=== PATIENT | male | born 1990 | race African-American/Black ===

== ENCOUNTER 2019-07-29 14:38 | Emergency (ER) | payer BC ==
--- OUTSIDE RECORDS SUMMARY | 2019-07-29 14:42 | XMS REPORT ---
:1990 Author Name Admin Address Unavailable Unavailable , PROBLEMS Condition Status Date Provider Notes Epidermal cyst active Rodzaire Wilson Right forear m BMI 21.0-21.9 active Mara Wilson Abscess, arm, right active Claudia G Elier Anal warts active Claudia G Elier Chlamydia infection of active Claudia G Elier anus and rectum Immunization update active Claudia G Elier Gonorrhea active Claudia G Elier Pre-procedural laboratory completed - Claudia G Elier examination Std screening completed - Claudia G Elier Syphilis active Alisa Nair Hiv disease active Alisa Nair ENCOUNTERS Date Type Provider Location Encounter Diagn osis Ambulatory [facility] Public UNK 4 - Encounter [facility] 4 Ambulatory [facility] Public UNK 3 - Encounter [facility] 3 Ambulatory Jennifer Kenny UNK 6 - Encounter Tim [facility] 6 Services Ambulatory [place] UNK 8 - Encounter [facility] 8 Ambulatory [facility] Adult UNK 6 - Encounter Elier [facility] 6 Ambulatory Claudia [facility] Adult UNK 6 - Encounter Elier [facility] G Elier 6 Annabel Summers Ambulatory Claudia [facility] Adult UNK 9 - Encounter Elier [facility] G Elier 9 [facility] Ambulatory Rodzaire Wilson [facility] Adult UNK 9 - Encounter Rodari Wilson [facility] 9 Ambulatory Rodari Wilson [facility] Adult BMI 21.0-21.9E pidermal cyst 9 - Encounter Rodari Wilson Medicine Yehoracio Bojorquezi 9 Ambulatory Andrea [facility] - [facility] Peterson [facility]agues [facility] - Encounter [facility] 1 Services Ambulatory Peterson [place] [facility] Adult UNK 9 - Encounter Elier [facility] G Elier 9 [facility] Ambulatory Claudia [facility] Adult UNK 9 - Encounter Elier [facility] G Elier 9 Annabel Kristopher Ambulatory Davina Lucero [facility] UNK 7 - Encounter [facility] 7 Services Ambulatory Davina Lucero [facility]K 7 - [facility] Adult UNK 5 - Encounter Elier [facility] G Elier 5 Annabel Kristopher Ambulatory Claudia [facility] Adult UNK 9 - Encounter Elier [facility] G Elier 9 [facility] Ambulatory Claudia [facility] Adult UNK 9 - Encounter Elier [facility] G Elier 9 Ambulatory Claudia [facility] Adult UNK 9 - Encounter Elier [facility] G Elier 9 Ambulatory Claudia [facility] Adult Abscess, arm, r ight 9 - Encounter Elier [facility] G Elier 9 Hunter Tamayo Ambulatory Peterson Sotelo [facility] UNK 7 - [facility] Ambulatory Peterson S[place] [facility] UNK 7 - [facility]counter [facility] 7 Services Ambulatory [facility]ia [facility] Adult UNK 0 - Encounter Elier [facility] G Elier 0 [facility] Ambulatory Claudia [facility] Adult UNK 1 - Encounter Elier [facility] G Elier 1 [facility] Ambulatory Claudia [facility] Adult UNK 1 - Encounter Elier [facility] G Elier 1 Ambulatory Claudia [facility] Adult UNK 1 - Encounter Elier [facility] G Elier 1 Annabelmaxwell Summers Ambulatory [place] [facility] UNK 7 - Encounter [facility] 7 Services [facility] Ambulatory Claudia [facility] Adult Anal warts 7 - Encounter Elier [facility] G Elier 7 Ambulatory [place] [facility] UNK 7 - Encounter [facility] 7 Services Ambulatory Claudia G [facility] UNK 7 - Encounter Elier Claudia [facility]lier [facility] 7 [facility] Services Ambulatory Claudia G [facility] UNK 7 - Encounter Elier Claudia [facility] G Elier [facility] 7 [facility] Services Ambulatory Claudia [facility] Adult UNK 1 - Encounter Elier [facility] G Elier 1 [facility] Ambulatory Rem[facility] Adult UNK 1 - Encounter Medicine 1 Ambulatory [facility] UNK 0 - [facility] 0 Ambulatory Jennifer [facility] Adult UNK 5 - Encounter [facility] 5 Ambulatory Claudia [facility] Adult UNK 7 - Encounter Elier [facility] G Elier 7 [facility] Ambulatory Alisa Korey [facility] Adult UNK 4 - Encounter Alisa Korey Medicine Marla D Hanis 4 Ambulatory Kira [facility] Social UNK 7 - Encounter [facility] 7 Ambulatory Claudia [facility] Adult UNK 7 - Encounter Elier [facility] G Elier 7 [facility] Ambulatory Kira [facility] Adult UNK 7 - Encounter [facility] [address] [facility] Public UNK 8 - Encounter [facility] 8 Ambulatory Angella LM Social UNK 7 - Encounter [place] [facility] 7 Ambulatory Marry Weber [facility] UNK 7 - [facility] Ambulatory Marry Weber [facility] UNK 7 - Encounter [facility] 7 Services Ambulatory Claudia [facility] Adult UNK 7 - Encounter Elier [facility] G Elier 7 Ambulatory [facility] Public UNK 7 - [facility] Services 7 [place] Gait Ambulatory Claudia G [facility] Adult Std screeningPr e-procedural 7 - Encounter Elier Claudia Medicine laboratory G Elier examinationGono rrheaImmunization 7 Marry Arriaza updateChlamydi a infection of anus Annabel and rectum Kristopher Ambulatory Marla Abraham [facility] Adult UNK 4 - Encounter Medicine 4 Ambulatory Alisa Korey [facility] Adult UNK 1 - Encounter Alisa Korey Medicine 1 Ambulatory Claudia [facility] Adult UNK 0 - Encounter Elier [facility] G Elier 0 [facility] Ambulatory Marla D Hanis [facility] Adult UNK 8 - Encounter Alisa Korey Medicine Alisa Korey 8 Ambulatory Claudia [facility] Adult UNK 1 - Encounter Elier [facility] G Elier 1 [facility] Ambulatory Alisa Korey [facility] Adult UNK 9 - Encounter Alisa Korey Medicine [facility] 9 Ambulatory Claudia [facility] Adult UNK 0 - Encounter Elier [facility] G Elier 0 [facility] Ambulatory Claudia [facility] Adult UNK 0 - Encounter Elier [facility] G Elier 0 [facility] Ambulatory Claudia G [facility] Adult Pre-procedural laboratory 0 - Encounter Elier Claudia Medicine examination G Elier [place] 0 Tim Ambulatory Charla [facility] Adult UNK 0 - Encounter Luis Alberto Medicine 0 Ambulatory [facility] Public UNK 9 - Encounter Services Health Provider Services 9 [place] Ambulatory Alisa Korey C Adult UNK 9 - Encounter Alisa Korey Medicine 9 Ambulatory Alisa Korey [facility] Adult Hiv diseaseSyph ilisStd screening 9 - Encounter Alisa Korey Medicine Marla Rosario 9 VITAL SIGNS No Information Available Allergies No Known Allergy Information REASON FOR REFERRAL No Information Available RESULTS Date Observation Value Provider Reference Interpretation Loc ation Range Treponema pallidum Reactive [facility] Non Reactive / Ab, serum " rapid plasma reagin 1:2 [facility] NonRea<1:1 High antibody, serum " HIV-1RNA, serum, by 120 /mL [facility] PCR, quantitative " alanine 10 1/L [facility] 0-44 aminotransferase (SGPT), serum " aspartate 16 1/L [facility] 0-40 aminotransferase (SGOT), serum " alkaline 52 1/L [facility] 39-117 phosphatase, serum " bilirubin, serum, 0.4 mg/dL [facility] 0.0-1.2 total " albumin/globulin 1.5 [facility] 1.2-2.2 ratio, serum " globulin, serum 2.8 [facility] 1.5-4.5 " albumin, serum 4.2 g/dL [facility] 3.5-5.5 " protein, total, 7.0 g/dL [facility] 6.0-8.5 serum " calcium, serum 9.4 mg/dL [facility] 8.7-10.2 " carbon dioxide, 24 mmol/L [facility] 20-29 venous blood " chloride, serum 104 mmol/L [facility] 96-106 " potassium, serum 4.6 mmol/L [facility] 3.5-5.2 " sodium, serum 141 mmol/L [facility] 134-144 " urea 14 [facility] 9-20 nitrogen/creatinine ratio, serum " eGFR if 125 [facility] >59 [place] mL/min/((173 /100).m2) " Estimated 108 [facility] >59 Glomerular mL/min/((173 Filtration Rate /100).m2) (calc) " creatinine, serum 0.95 mg/dL [facility] 0.76-1.27 " urea nitrogen, 13 mg/dL [facility] 6-20 blood " blood glucose, 89 mg/dL [facility] 65-99 random Aerobic culture Final report [facility] " Culture, Anaerobic Final report [facility] hepatitis A Positive [facility] Negative Abnormal /20 antibody, total " hepatitis B core Positive [facility] Negative Abnormal antibody, total " hepatitis B surface Negative [facility] Negative antigen " bilirubin, serum, 0.10 mg/dL [facility] 0.00-0.40 direct " Treponema pallidum Reactive [facility] Non Reactive Abnormal Ab, serum " rapid plasma reagin 1:32 [facility] NonRea<1:1 High antibody, serum " hepatitis C <0.1 [facility] 0.0-0.9 antibody, serum " HIV-2 antibodies, Negative [facility] Negative western blot " HIV-1/HIV-2 Ab, Positive [facility] Negative Abnormal serum " HIV-CMIA Reactive [facility] Non Reactive Abnormal (Chemiluminescent Microparticle Immuno Assay) " human leukocyte Negative [facility] antigen B57 " toxoplasma gondii <3.0 [facility] 0.0-7.1 antibody, IgG " hepatitis B surface Non Reactive [facility] antibody " HIV genotype result GENRTI [facility] " HIV-1RNA, serum, by 497128 /mL [facility] PCR, quantitative " alanine 14 1/L [facility] 0-44 aminotransferase (SGPT), serum " aspartate 22 1/L [facility] 0-40 aminotransferase (SGOT), serum " alkaline 46 1/L [facility] 39-117 phosphatase, serum " bilirubin, serum, 0.2 mg/dL [facility] 0.0-1.2 total " albumin/globulin 1.4 [facility] 1.2-2.2 ratio, serum " globulin, serum 3.3 [facility] 1.5-4.5 " albumin, serum 4.5 g/dL [facility] 3.5-5.5 " protein, total, 7.8 g/dL [facility] 6.0-8.5 serum " calcium, serum 9.8 mg/dL [facility] 8.7-10.2 " carbon dioxide, 26 mmol/L [facility] 20-29 venous blood " chloride, serum 99 mmol/L [facility] 96-106 " potassium, serum 4.1 mmol/L [facility] 3.5-5.2 " sodium, serum 141 mmol/L [facility] 134-144 " urea 11 [facility] 9-20 nitrogen/creatinine ratio, serum " eGFR if 141 [facility] >59 [place] mL/min/((173 /100).m2) " Estimated 122 [facility] >59 Glomerular mL/min/((173 Filtration Rate /100).m2) (calc) " creatinine, serum 0.81 mg/dL [facility] 0.76-1.27 " urea nitrogen, 9 mg/dL [facility] 6-20 blood " blood glucose, 85 mg/dL [facility] 65-99 random " immature 0 % [facility] Not Estab. granulocytes, percentage of total cells, blood " basophil count, 0.0 x10E3/uL [facility] 0.0-0.2 absolute " Eosinophil Absolute 0.1 X10E3/UL [facility] 0.0-0.4 Count " monocyte count, 0.7 X10E3/UL [facility] 0.1-0.9 blood, automated " lymphocyte count, 2.0 X10E3/UL [facility] 0.7-3.1 blood, automated " Absolute 4.2 X10E3/UL [facility] 1.4-7.0 Neutrophils " basophils as 0 % [facility] Not Estab. percent of blood leukocytes " eosinophils as 1 % [facility] Not Estab. percent of blood leukocytes " monocytes as 10 % [facility] Not Estab. percent of blood leukocytes " lymphocytes as 28 % [facility] Not Estab. percent of blood leukocytes " neutrophils as 61 % [facility] Not Estab. percent of blood leukocytes " platelet count 407 X10E3/UL [facility] 150-379 High " red blood cell 13.2 % [facility] 12.3-15.4 distribution width " mean corpuscular 34.2 G/DL [facility] 31.5-35.7 hemoglobin concentration, RBC " mean corpuscular 32.1 pg [facility] 26.6-33.0 hemoglobin, RBC " mean corpuscular 94 fL [facility] 79-97 volume, RBC " hematocrit, blood 43.0 % [facility] 37.5-51.0 " hemoglobin, blood 14.7 g/dL [facility] 13.0-17.7 " erythrocyte (RBC) 4.58 [facility] 4.14-5.80 count X10E6/UL " leukocyte count, 7.0 X10E3/UL [facility] 3.4-10.8 blood " CD4/CD8 ratio 0.77 [facility] 0.92-3.72 Low " T-suppressor cells 42.7 % [facility] 12.0-35.5 High (CD8) as percent of blood lymphocytes " absolute CD8 854 [facility] 109-897 " T-helper cells 32.7 % [facility] 30.8-58.5 (CD4) as percent of blood lymphocytes " T-helper cells 654 /UL [facility] 359-1519 (CD4) count Treponema pallidum Positive [facility] Negative antibodies, by particle agglutination " rapid plasma reagin 1:8 [facility] NonRea<1:1 High antibody, serum " HIV-1RNA, serum, by 2580 /mL [facility] PCR, quantitative " alanine 39 1/L [facility] 0-44 aminotransferase (SGPT), serum " aspartate 35 1/L [facility] 0-40 aminotransferase (SGOT), serum " alkaline 41 1/L [facility] 39-117 phosphatase, serum " bilirubin, serum, 0.4 mg/dL [facility] 0.0-1.2 total " albumin/globulin 1.4 [facility] 1.2-2.2 ratio, serum " globulin, serum 3.5 [facility] 1.5-4.5 " albumin, serum 4.8 g/dL [facility] 3.5-5.5 " protein, total, 8.3 g/dL [facility] 6.0-8.5 serum " calcium, serum 9.9 mg/dL [facility] 8.7-10.2 " carbon dioxide, 27 mmol/L [facility] 20-29 venous blood " chloride, serum 100 mmol/L [facility] 96-106 " potassium, serum 4.6 mmol/L [facility] 3.5-5.2 " sodium, serum 142 mmol/L [facility] 134-144 " urea 17 [facility] 9-20 nitrogen/creatinine ratio, serum " eGFR if 116 [facility] >59 [place] mL/min/((173 /100).m2) " Estimated 101 [facility] >59 Glomerular mL/min/((173 Filtration Rate /100).m2) (calc) " creatinine, serum 1.01 mg/dL [facility] 0.76-1.27 " urea nitrogen, 17 mg/dL [facility] 6-20 blood " blood glucose, 91 mg/dL [facility] 65-99 random Quantiferon Gold TB Negative [facility] Negative /07 blood test for tuberculosis screening Neisseria Equivocal [facility] Negative Abnormal /19 gonorrhoeae, throat culture " Neisseria Negative [facility] Negative gonorrhoeae DNA probe " chlamydia DNA probe Negative [facility] Negative Quantiferon Gold TB Negative [facility] Negative /20 blood test for tuberculosis screening Neisseria Negative [facility] Negative /20 gonorrhoeae DNA probe " chlamydia DNA probe Negative [facility] Negative " protein, total <4.0 mg/dL [facility] Not Estab. urine random " creatinine, random, 23.9 mg/dL [facility] Not Estab. urine " urinalysis, MICNIP [facility] microscopic examination " nitrate, urine Negative [facility] Negative " urobilinogen, 0.2 [facility] 0.2-1.0 urine, semiquantitative (dipstick) " bilirubin, urine Negative [facility] Negative " ketones, urine, by Negative [facility] Negative test strip " glucose, urine, Negative [facility] Negative semiquantitative " protein, urine, Negative [facility] Negative/Tra semiquantitative ce (dipstick) " leukocyte esterase, Negative [facility] Negative urine, by dipstick " appearance, urine Clear [facility] Clear " urine color Yellow [facility] Yellow " pH, urine, 6.5 [facility] 5.0-7.5 semiquantitative " specific gravity, <=1.005 [facility] 1.005-1.030 Abnormal body fluid HISTORY OF IMMUNIZATIONS Date Vaccine Dose Lot Number Status pneumovax 23 im/sq [id number] Merck & 0.5 mL [id number] completed [employer] engerix-b im 20 mcg/ml [id number] mL [id number] completed Zzish HISTORY OF MEDICATION USE Medication Instructions Dates Provider Comments KEFLEX 500 MG ORAL 1 by mouth 4 times a - Mara Wilson CAPSULE day BACTRIM DS 800-160 MG 1 tab by mouth twice a - Mara Ne wman ORAL TABLET day x 7 days IMIQUIMOD 5 % Apply topically to - Claudia G Elier EXTERNAL CREAM lesions QHS wash area after 8-10 hrs 3 times weekly for 16 wks GENVOYA 1 tab by mouth daily Claudia G Elier [phone] MG with food ORAL TABLET SOCIAL HISTORY Date Observation Value Provider time of call 03/10/2019 9:49 AM Ángela fitzgerald time of call 02/17/2019 9:51 AM Ángela fitzgerald social history reviewed E&M reviewed today Barbara Summers " drug use, illicit Never Annabel collado " alcohol use Currently Annable Summers " passive cigarette smoke No Katharine Summers exposure " smoking status former smoker Annabel Summers tobacco use (cigarettes, Never Rodari Wilson cigar, chew, pipe) " drug use, illicit Never Rubin Gold " alcohol use Currently Rubin Gold " smoking status never smoker Yerandi Alla " social history reviewed E&M reviewed today Kandi husaini Alla " sexual orientation Ramos Rubin Bojorquezi " is there any chance that you No Juice sal Alla could be ? " assessment of health Adequate Rubin Mon i literacy ([facility] 2014 Standards, 3C10) " passive cigarette smoke No Yeranpaulo Alla exposure social history reviewed E&M reviewed today Barbara Summers " drug use, illicit Never Annabel Cristel l " alcohol use Currently Annabel Kristopher " assessment of health Adequate Annabel A ngel literacy ([facility] 2014 Standards, 3C10) " passive cigarette smoke No Katharine h Kristopher exposure " smoking status never smoker Annabel Kristopher drug use, illicit Never Yamisela Tamayo " alcohol use Currently Yamisela Tamayo " social history reviewed E&M reviewed today Alondra akira Tamayo " sexual orientation Ramos Yamanthonyla Silv a " assessment of health Adequate Yamisela Si lva literacy ([facility] 2014 Standards, 3C10) " passive cigarette smoke No Yamisela Tamayo exposure " smoking status never smoker Yamisela Tamayo social history reviewed E&M reviewed today Barbara Summers " drug use, illicit Never Annabel Cristel l " alcohol use Currently Annabel Kristopher " assessment of health Adequate Annabel A ngel literacy ([facility] 2014 Standards, 3C10) " passive cigarette smoke No Katharine h Kristopher exposure " smoking status never smoker Annabel Kristopher sexual orientation Ramos Marla D Hanis " is there any chance that you No Elysia mauricio D Hanis could be ? 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 Summers " patient considered to be No Elizabe th Kristopher homeless " passive cigarette smoke No Katharine h Kristopher exposure " assessment of health Adequate Annabel A ngel literacy ([facility] 2014 Standards, 3C10) " social history reviewed E&M reviewed today Barbara Summers " drug use, illicit Never Annabel Cristel l " alcohol use Currently Annabel Kristopher " smoking status never smoker Annabel Summers drug use, illicit Never Marla Levinerod " alcohol use, frequency holidays/special occasion s Marla Levinerod only " alcohol use Currently Marla Levinerod " sex at Male Marla Levinerod " sexual orientation Ramos Marla Rosario " passive cigarette smoke No Marla E lrod exposure " smoking status never smoker Marla Rosario " social history reviewed E&M reviewed today Dell Rosario " is there any chance that you No Elysia Rosario could be ? FUNCTIONAL STATUS No Information Available MENTAL STATUS Date Observation Value Provider mental status examination: oriented to time, suman ce, Claudia G Elier orientation E&M and person " assessment of mood and affect no depression, anx iety, or Claudia G Elier E&M agitation " Generalized Anxiety Disorder 0 Araceli Summers Questionnaire - Question 2 " Generalized Anxiety Disorder 0 Araceli Summers Questionnaire - Question 1 mental status examination: intact for recent and Rodari Wilson recall E&M remote events " assessment of judgment and intact Rodar i Wilson insight E&M " mental status examination: oriented to time, suman ce, Rodari Wilson orientation E&M and person " assessment of mood and affect no depression, anx iety, or Rodari Wilson E&M agitation " Generalized Anxiety Disorder 0 Juice sal Alla Questionnaire - Question 2 " Generalized Anxiety Disorder 0 Juice sal Alla Questionnaire - Question 1 assessment of judgment and intact Xiomara a G Elier insight E&M " mental status examination: oriented to time, suman ce, Claudia G Elier orientation E&M and person " assessment of mood and affect no depression, anx iety, or Claudia G Elier E&M agitation " Generalized Anxiety Disorder 0 Araceli Summers Questionnaire - Question 2 " Generalized Anxiety Disorder 0 Araceli Summers Questionnaire - Question 1 mental status examination: oriented to time, suman ce, Claudia G Elier orientation E&M and person " assessment of mood and affect no depression, anx iety, or Claudia G Elier E&M agitation " Generalized Anxiety Disorder 0 Robert Tamayo Questionnaire - Question 2 " Generalized Anxiety Disorder 0 Robert Tamayo Questionnaire - Question 1 assessment of judgment and intact Xiomara a G Elier insight E&M " mental status examination: oriented to time, suman ce, Claudia G Elier orientation E&M and person " assessment of mood and affect no depression, anx iety, or Claudia G Elier E&M agitation " Generalized Anxiety Disorder 0 Araceli zabeth Kristopher Questionnaire - Question 2 " Generalized Anxiety Disorder 0 Araceli zabeth Kristopher Questionnaire - Question 1 Generalized Anxiety Disorder 0 Elysia mauricio Abraham Questionnaire - Question 2 " Generalized Anxiety Disorder 0 Elysia mauricio D Hanis Questionnaire - Question 1 mental status examination: oriented to time, suman ce, Claudia G Elier orientation E&M and person " assessment of judgment and intact Xiomara a G Elier insight E&M " assessment of mood and affect no depression, anx iety, or Claudia G Elier E&M agitation " Generalized Anxiety Disorder 0 Araceli zabeth Kristopher Questionnaire - Question 2 " Generalized Anxiety Disorder 0 Araceli zabeth Kristopher Questionnaire - Question 1 assessment of mood and affect no depression, anx iety, or Alisa Korey E&M agitation " Generalized Anxiety Disorder 0 Elysia mauricio D Hanis Questionnaire - Question 2 " Generalized Anxiety Disorder 0 Elysia mauricio Abraham Questionnaire - Question 1 MEDICAL EQUIPMENT No Information Available FAMILY HISTORY No Information Available INSURANCE PROVIDERS Payer name Policy type / Coverage type Covered part y ID Marcus Gaines 101-200% Other [id number] Sliding Fee - Cat 2 [employer] insurance [employer] [place] [id number] *Marcus Gaines 0-100% Other ADVANCE DIRECTIVES No Information Available TREATMENT PLAN Date Name RPR, Rfx Qn RPR/Confirm TP Comp. Metabolic Panel (14) CBC With Differential/Platel et CD4/CD8 Ratio Profile Lipid Panel RNA, Real Time PCR (Graph) Anaerobic and Aerobic Cultur e RPR RNA, Real Time PCR (Graph) Comp. Metabolic Panel (14) RNA, Real Time PCR (Graph) RPR, Rfx Qn RPR/Confirm TP Comp. Metabolic Panel (14) Urinalysis, Routine Toxoplasma gondii Ab, IgG, Q n SPOT Urine Protein: creatin e ratio RPR RNA, PCR(NonGraph)rfx/GenoPR I QuantiFERON TB Gold Plus HLA B5701 Test HIV 1/2 ANTIGEN/ANTIBODY, FO URTH GENERATION W/RFL HCV Antibody HBsAg Screen Hep B Surface Ab Hep B Core Ab, Tot Hep A Ab, Total Gc/Ct/Trich (Urine) Bilirubin; Direct Comp. Metabolic Panel (14) CBC With Differential/Platel et CD4/CD8 Ratio Profile Ct/GC RIC, Rectal Ct/GC RIC, Pharyngeal RPR, Rfx Qn RPR/Confirm TP HIV 1/2 ANTIGEN/ANTIBODY, FO URTH GENERATION W/RFL HCV Antibody HBsAg Screen Chlamydia/GC Amplification ( Urine) Est Patient Detailed - 52086 Est Patient Exp Problem - 99 213 Est Patient Nurse - Only Vis it - 30348 Addl Vx - Ix admin via ID IM or jet injects without counseling by physician Pneumovax 23 Injection Injec table 25 MCG/0.5ML First Vx - Ix admin via ID I M or jet injects without counseling by physician Engerix-B Injection Suspensi on 20 MCG/ML Vaccines Ordered - Print Con sent/Declination Forms Est Patient Exp Problem - 99 213 Est Patient Exp Problem - 99 213 Prevnar (PCV13) IM Hepatitis B - Adult Injection, penicillin g reynaldo athine, 1.2 mu Est Patient Nurse - Only Vis it - 49514 IM Injection of Antibiotic Injection, penicillin g reynaldo athine, 1.2 mu Primary Care - Service Plann ing Comprehensive Primary Care - Assesment-Com prehensive [facility] Primary Care Medical Case [place] davis Health Education/Supportive Counseling Injection, penicillin g reynaldo athine, 1.2 mu Injection, ceftriaxone sodiu m, per 250 mg Azithromycin oral Est Patient Comprehensive-99 215 Fluzone 0.5 ml (Influenza Va cc 3 years plus IM) Prescription Assistance (HIV - Routine) Health Education/Supportive Counseling Handling of specimen for tra nsfer Venipuncture IM Injection of Antibiotic Injection, penicillin g reynaldo athine, 1.2 mu New Patient Exp Problem - 99 202 Venipuncture Handling of specimen for tra nsfer HISTORY OF PROCEDURES Procedure Date Procedure Name Provider Procedure Notes Status Addl Vx - Ix admin via Claudia G Elier co mpleted ID IM or jet injects without counseling by physician Pneumovax 23 Injection Claudia G Elier co mpleted Injectable 25 MCG/0.5ML First Vx - Ix admin via Claudia G Elier c ompleted ID IM or jet injects without counseling by physician Engerix-B Injection Claudia G Elier compl eted Suspension 20 MCG/ML Vaccines Ordered - Claudia G Elier comple wendy Print Consent/Declination Forms Injection, penicillin g Remedios [place] com pleted benzathine, 1.2 mu IM Injection of Alisa Korey no complaints completed Antibiotic Injection, penicillin g Alisa Nair comp leted benzathine, 1.2 mu Primary Care - Service Kira Fajardo Time spent with completed Planning Comprehensive patient:30 Primary Care - Kira Fajardo Time spent with complete d Assesment-Comprehensive patient:30 [facility] Primary Care Medical Kira Fajardo Time spent with co mpleted Case Management patient:45 [facility] [place] completed Education/Supportive Counseling Injection, penicillin g Claudia G Elier c ompleted benzathine, 1.2 mu Injection, ceftriaxone Claudia G Elier co mpleted sodium, per 250 mg Azithromycin oral Claudia G Elier complet ed Health Leisaprosper Blairle[place] completed Education/Supportive Counseling Venipuncture Claudia G Elier completed IM Injection of Alisa Nair completed Antibiotic Injection, penicillin g Alisa Nair comp leted benzathine, 1.2 mu Venipuncture Alisa Nair completed GOALS No Information Available HEALTH CONCERNS No Information Available
--- OUTSIDE RECORDS SUMMARY | 2019-07-29 14:42 | XMS REPORT ---
:1990 Author Name Admin Address Unavailable Unavailable , PROBLEMS Condition Status Date Provider Notes Epidermal cyst active Mara Wilson Right forear m BMI 21.0-21.9 active [...] Type Provider Location Encounter Diagn osis Ambulatory Ángela [facility] Public UNK 3 - Encounter [facility] Services 3 Ambulatory [facility] UNK 6 - Encounter [facility] Health 6 Services Ambulatory Luann [place] UNK 8 - Encounter [facility] 8 Ambulatory [facility]ia [facility] Adult UNK 6 - Encounter Elier [facility]ia [facility] G Elier 6 Ambulatory Claudia G [facility] Adult UNK 6 - Encounter Elier Claudia Medicine G Elier 6 Annabel Summers Ambulatory Claudia [facility] Adult UNK 9 - Encounter Elier Claudia Medicine G Elier 9 [facility] Ambulatory Mara Wilson [facility] Adult UNK 9 - Encounter Rodari Wilson [facility] 9 Ambulatory Rodzaire Wilson [facility] Adult BMI 21.0-21.9E pidermal cyst 9 - Encounter Rodari Wilson Medicine Rubin Gold 9 Ambulatory Andrea Zhang [facility] UNK 8 - Encounter [facility] 8 Services Ambulatory Andreakrystina Becerranco [facility] 8 - [facility] Peterson Sotelo [facility] UNK 1 - Encounter [facility] Health 1 Services Ambulatory Peterson S[place] [facility]K 1 - [facility] Adult UNK 9 - Encounter Elier Claudia Medicine G Elier 9 [employer] Ambulatory Claudia G [facility] Adult UNK 9 - Encounter Elier Claudia Medicine G Elier 9 Annabel Kristopher Ambulatory Davina Lucero [facility] UNK 7 - Encounter [facility] Health 7 Services Ambulatory Davina Lucero [facility] UNK 7 - [facility] [...] Encounter Elier Claudia Medicine G Elier 9 Tinala Tamayo Ambulatory Peterson Sotelo Legacy UNK 7 - Encounter [facility] Health 7 Services Ambulatory Peterson Sotelo [facility] UNK 7 - [facility] Ambulatory Claudia G [...] Ambulatory [place] [facility] UNK 7 - Encounter [facility] 7 Services [facility] Ambulatory Claudia G [facility] Adult Anal warts 7 - Encounter Elier Clauida Medicine G Elier 7 Ambulatory [place] [facility] UNK 7 - Encounter [facility] Health 7 Services Ambulatory Claudia G [facility]K 7 - [facility] 7 [employer] Services Ambulatory Claudia G [facility] UNK 7 - Encounter Elier Claudia [facility] G Elier Health 7 [employer] Services Ambulatory Claudia G [facility] Adult UNK 1 - Encounter Elier Claudia Medicine G Elier 1 [employer] Ambulatory Remedios [place] [facility] Adult UNK 1 - Encounter Medicine 1 Ambulatory O[facility]es [facility] Public UNK 0 - [facility] 0 Ambulatory Jennifer [facility] Adult UNK 5 - Encounter [facility] [place] 5 Ambulatory Claudia G [facility] Adult UNK 7 - Encounter Elier Claudia Medicine G Elier 7 [employer] 2019/03/1 Ambulatory Alisa Korey [facility] Adult UNK 4 - Encounter Alisa Korey Medicine Marla Lima 4 Ambulatory Kira [facility] Social UNK 7 - Encounter Fajardo Services 7 Ambulatory Claudia G [facility] Adult UNK 7 - Encounter Elier Claudia Medicine G Elier 7 [employer] Ambulatory Kira [facility] Adult UNK 7 - Encounter Fajardo Medicine [employer] 7 Ambulatory [facility] Public UNK 8 - [facility]counter [facility] 8 Ambulatory Angella LM Social UNK 7 - Encounter Adithya Services 7 Ambulatory Marry Arriaza [facility] UNK 7 - [facility] 7 Services Ambulatory Marry Arriaza [facility] UNK 7 - [facility] 7 Services Ambulatory Claudia [facility] Adult UNK 7 - Encounter Elier Claudia Medicine G Elier 7 Ambulatory [facility] UNK 7 - Encounter [facility] Health Provider Services 7 [place] Ambulatory Claudia G LM Adult Std screeningPr e-procedural 7 - Encounter Elier Claudia Medicine laboratory G Elier examinationGono rrheaImmunization 7 Marry Arriaza updateChlamydi a infection of anus Annabel and rectum Kristopher Ambulatory Marla Lima [facility] Adult UNK 4 - Encounter Medicine 4 Ambulatory Alisa Korey [facility] Adult UNK 1 - Encounter Alisa Korey Medicine 1 Ambulatory Claudia G [facility] Adult UNK 0 - Encounter Elier Claudia Medicine G Elier 0 [employer] Ambulatory Marla Abraham [facility] Adult UNK 8 - Encounter Alisa [...] Encounter Elier Claudia Medicine examination G Elier [place] 0 Tim Ambulatory Charla [facility] Adult UNK 0 - Encounter Luis Alberto Medicine 0 Ambulatory Public Health [facility] Public UNK 9 - Encounter Services Health Provider Services 9 Mollprosper Gaitz Ambulatory Alisa Korey [facility] Adult UNK 9 - Encounter Alisa Korey Medicine 9 Ambulatory Alisa Korey [facility] Adult Hiv diseaseSyph ilisStd screening 9 - Encounter Alisa Korey Medicine Marla Abraham 9 VITAL SIGNS No Information Available Allergies [...] serum " eGFR if 125 [employer] >59 [place] mL/min/((173 /100).m2) " Estimated 108 [employer] >59 [...] result GENRTI [employer] " HIV-1RNA, serum, by 221860 /mL [employer] PCR, quantitative " alanine 14 [...] serum " eGFR if 141 [employer] >59 [place] mL/min/((173 /100).m2) " Estimated 122 [employer] >59 [...] (CD4) count Treponema pallidum Positive [employer] Negative Abnormal /11 antibodies, by particle agglutination " rapid plasma [...] serum " eGFR if 116 [employer] >59 [place] mL/min/((173 /100).m2) " Estimated 101 [employer] >59 [...] Dose Lot Number Status pneumovax 23 im/sq [id number] [employer] & 0.5 mL [id number] completed [email or web address] engerix-b im 20 mcg/ml [id number] 1 mL [id number] completed [employer] HISTORY OF MEDICATION USE Medication Instructions Dates Provider Comments KEFLEX 500 MG ORAL 1 by mouth 4 times a - Rodari Wilson CAPSULE day BACTRIM DS 800-160 MG 1 tab by mouth twice a - Rodari Ne wman ORAL TABLET day x 7 days IMIQUIMOD 5 % Apply topically to - Claudia Thapa EXTERNAL CREAM lesions [facility] wash area after 8-10 hrs 3 times weekly for 16 wks GENVOYA 1 tab by mouth daily Claudia G Elier [phone] MG with food ORAL TABLET SOCIAL HISTORY Date Observation Value Provider time of call 02/17/2019 9:51 AM Ángela fitzgerald social history reviewed E&M reviewed today Barbara Summers " drug use, illicit Never Annabel collado " alcohol use Currently Annabel Summers " passive cigarette smoke No Katharine Summers exposure " smoking status former smoker Annabel Summers tobacco use (cigarettes, Never Rodari Wilson cigar, chew, pipe) " drug use, illicit Never Yerandi Alla " alcohol use Currently Yerandi Alla " smoking status never smoker Yerandi Alla " social history reviewed E&M reviewed today Kandi ndi Alla " sexual orientation Ramos Yerandi Alla " is there any chance that you No Juice sal Alla could be ? " assessment of health Adequate Yerandi Mon i literacy ([facility] 2014 Standards, 3C10) " passive cigarette smoke No Yerandi Alla exposure social history reviewed E&M reviewed today Barbara Summers " drug use, illicit Never Annabel Cristel l " alcohol use Currently Annabel Summers " assessment of health Adequate Annabel A ngel literacy ([facility] 2014 Standards, 3C10) " passive cigarette smoke No Katharine h Kristopher exposure " smoking status never smoker Annabel Summers drug use, illicit Never Yamisela Tamayo " alcohol use Currently Yamisela Tamayo " social history reviewed E&M reviewed today Alondra akira Tamayo " sexual orientation Ramos Hunter Silv a " assessment of health Adequate Yamisela Si lva literacy ([facility] 2014 Standards, 3C10) " passive cigarette smoke No Yamisela Tamayo exposure " smoking status never smoker Yamanthonyla Tamayo social history reviewed E&M reviewed today Barbara Summers " drug use, illicit Never Annabel Cristel l " alcohol use Currently Annabel Summers " assessment of health Adequate Annabel A ngel literacy ([facility] 2014 Standards, 3C10) " passive cigarette smoke No Katharine h Kristopher exposure " smoking status never smoker Annabel Summers sexual orientation Ramos Marla Abraham " is there any chance that you No Elysia mauricio Lima could be ? 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 " patient considered to be No Elizabe th Kristopher homeless " passive cigarette smoke No Katharine h Kristopher exposure " assessment of health Adequate Annabel A ngel literacy ([facility] 2014 Standards, 3C10) " social history reviewed E&M reviewed today Barbara Summers " drug use, illicit Never Annabel Cristel l " alcohol use Currently Annabel Kristopher " smoking status never smoker Annabel Kristopher drug use, illicit Never Marla Lima " alcohol use, frequency holidays/special occasion s Marla Lima only " alcohol use Currently Marla Abraham " sex at Male Marla Rosario " sexual orientation Ramos Marla Rosario " passive cigarette smoke No Marla Marino lrod exposure " smoking status never smoker [...] Araceli zabeth Kristopher Questionnaire - Question 1 mental status examination: [...] agitation " Generalized Anxiety Disorder 0 Araceli jetbeth Kristopher Questionnaire - Question 2 " Generalized Anxiety Disorder 0 Araceli zabeth Kristopher Questionnaire - Question 1 mental status examination: [...] agitation " Generalized Anxiety Disorder 0 Araceli zita Kristopher Questionnaire - Question 2 " Generalized Anxiety Disorder 0 Araceli zabeth Kristopher Questionnaire - Question 1 Generalized Anxiety Disorder 0 Elysia mauricio Abraham Questionnaire - Question 2 " Generalized Anxiety Disorder 0 Elysia mauricio Lima Questionnaire - Question 1 mental status examination: oriented to time, suman ce, Claudia G Elier orientation E&M and person " assessment of judgment and intact Xiomara a G Elier insight E&M " assessment of mood and affect no depression, anx iety, or Claudia G Elier E&M agitation " Generalized Anxiety Disorder 0 Araceli jetbewily Kristopher Questionnaire - Question 2 " Generalized Anxiety Disorder 0 Araceli jetbewily Kristopher Questionnaire - Question 1 assessment of mood and affect no depression, anx iety, or Alisa Korey E&M agitation " Generalized Anxiety Disorder 0 Elysia martínez Lima Questionnaire - Question 2 " Generalized Anxiety Disorder 0 Elysia mauricio Abraham Questionnaire - Question 1 MEDICAL EQUIPMENT No Information Available FAMILY HISTORY No Information Available INSURANCE PROVIDERS Payer name Policy type / Coverage type Covered part y ID Marcus Gaines 101-200% Other [id number] Sliding Fee - Cat 2 [employer] insurance [employer] [id number] *Marcus Gaines 0-100% Other ADVANCE DIRECTIVES No [...] Amplification ( Urine) Est Patient Detailed - 62480 Est Patient Exp Problem - 99 213 Est Patient Nurse - Only Vis it - 78145 Addl Vx - Ix admin via ID [...] Patient Nurse - Only Vis it - 89296 IM Injection of Antibiotic Injection, penicillin g reynaldo athine, 1.2 mu Primary Care - Service Plann ing Comprehensive Primary Care - Assesment-Com prehensive [facility] Primary Care Medical Case Chino davis [...] Addl Vx - Ix admin via Claudia MATIvision Elier co mpleted ID IM or jet [...] no complaints completed Antibiotic Injection, penicillin g Alisamichaelle Nair comp leted benzathine, 1.2 mu Primary Care - Service Kira Fajardo Time spent with completed Planning Comprehensive patient:30 Primary Care - Kira Fajardo Time spent with complete d Assesment-Comprehensive patient:30 [facility] Primary Care Medical Kira Fajardo Time spent with co mpleted Case Management patient:45 [place] completed Education/Supportive Counseling Injection, penicillin g Claudia G Elier c ompleted benzathine, 1.2 mu Injection, ceftriaxone Claudia G Elier co mpleted sodium, per 250 mg Azithromycin oral Claudia G Elier complet ed Health [place] completed Education/Supportive Counseling Venipuncture Claudia Gwen Thapa completed IM Injection of Alisa Nair completed Antibiotic Injection, penicillin g lAisa Nair comp leted benzathine, 1.2 mu Venipuncture Alisa Nair completed GOALS No Information Available HEALTH CONCERNS No Information Available
--- OUTSIDE RECORDS SUMMARY | 2019-07-29 14:42 | XMS REPORT ---
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 Conditions or Problems Problem Name Problem Onset Status Entry Provider Comment Standard A nnotate Code Date Date Description BMI 21.0-21.9 Active Mara Body Mass Index 11/13 11/13 Wilson between 19-24, [employer] adult Epidermal cyst 706.2 Active Mara Sebaceous cyst Right 11/13 11/13 [place] forearm [employer] Abscess, arm, 682.3 Active Claudia G Celluliti s and right 09/23 09/23 Elier GARCIA abscess of upp er arm and forearm Anal warts 078.10 Active Claudia G Viral warts, 07/22 07/22 Elier GARCIA unspecified Chlamydia 099.52 Active Claudia G Venereal dise ase infection of 06/11 06/11 Elier GARCIA of the an us and anus and rectum due to rectum Chlamydia trachomatis Gonorrhea 098.0 Active Claudia G Gonococcal 06/11 06/11 Elier GARCIA infection (acu te) of lower genitourinary tract Immunization V15.9 Active Claudia G Unspecifie d update 06/11 06/11 Elier GARCIA personal histo ry presenting hazards to healt h Hiv disease 042 Active Alisa Human 05/26 05/26 Korey immunodeficiency CHISELER HEAD virus [HIV] disease Syphilis 097.9 Active Alisa Syphilis, 05/26 05/26 Korey unspecified CHISELER HEAD Pre-procedural ICD-V72.63 Inactive Claudia G 06/11 laboratory Elier GARCIA examination Std screening ICD-V74.5 Inactive Claudia G Elier GARCIA Pre-procedural V72.63 Resolved Claudia G P re-procedural laboratory Elier GARCIA laboratory examination examination Std screening V74.5 Resolved Claudia G Sc ollie Thapa MD examination fo r venereal disease Medication List Medication Instructions Start Stop Generic NDC Status Provider Patient Date Date Name Instruct nelly KUMARI 1 tab [id number]-TENOFAF 700641 95309 Active Claudia Active [phone] by G MG ORAL TABLET mouth Elier daily MD with food BACTRIM 1 tab BACTRIM 680810 TRIMETHO PRIM-SULFAMETHOXAZOLE Inactive DS by DS 800-160 mouth 800-160 MG ORAL twice MG ORAL TABLET a day TABLET x 7 days KEFLEX 1 by KEFLEX [id number] CEPHALEXIN Inactiv e 500 MG mouth 500 MG ORAL 4 ORAL CAPSULE times CAPSULE a day IMIQUIMO Apply IMIQUIMO 075147 IMIQUIMOD Inacti ve D 5 % topica D 5 % EXTERNAL lly to EXTERNAL CREAM lesion CREAM s QHS wash area after 8-10 hrs 3 times weekly for 16 wks BACTRIM 1 tab TRIMETHOPRIM-SULFAMETHOXAZOL E [id number] No Rodari Active DS by Longer Wilson 800-160 mouth Active [employer]ACTICE [employer]ST MG ORAL twice TABLET a day x 7 days KEFLEX 1 by CEPHALEXIN [id number] No Rodari Active 500 MG mouth Longer Wilson ORAL 4 Active PRACTICE BUSINESS ASST CAPSULE times a day IMIQUIMO Apply IMIQUIMOD [id number] No Claudia Active D 5 % topica Longer G EXTERNAL lly to Active Elier CREAM lesion MD s QHS wash area after 8-10 hrs 3 times weekly for 16 wks Immunizations Vaccine Administration Date Value Standard Lee cription hepatitis B vaccine #1 given given hep atitis B vaccine, unspecified form ulation PEDIATRIC PNEUMOCOCCAL VACCINE given p neumococcal conjugate ([id number]) #1 vaccine, 13 flaco nt influenza immunization (Flu given infl uenza virus vaccine, Vax) has been administered unspe cified formulation Vital Signs Date Name Value Unit Range Description blood pressure, diastolic 80 mm[Hg] BP lucia blood pressure, systolic 138 mm[Hg] BP sys height E&M 72 [in_us] Bdy height pulse rate E&M 78 /min Heart rate temperature E&M 98.8 [degF] Body temp erature weight E&M 149.38 [lb_av] Weight Measure d blood pressure, diastolic 81 mm[Hg] BP lucia blood pressure, systolic 130 mm[Hg] BP sys height E&M 72 [in_us] Bdy height pulse rate E&M 73 /min Heart rate temperature E&M 98 [degF] Body temp erature weight E&M 157 [lb_av] Weight Measure d blood pressure, diastolic 83 mm[Hg] BP lucia blood pressure, systolic 133 mm[Hg] BP sys height E&M 72 [in_us] Bdy height pulse rate E&M 77 /min Heart rate temperature E&M 98.8 [degF] Body temp erature weight E&M 155.25 [lb_av] Weight Measure d blood pressure, diastolic 91 mm[Hg] BP lucia blood pressure, systolic 141 mm[Hg] BP sys height E&M 72 [in_us] Bdy height pulse rate E&M 88 /min Heart rate respiratory rate E&M 12 /min Resp rate temperature E&M 98.8 [degF] Body temp erature weight E&M 149 [lb_av] Weight Measure d blood pressure, diastolic 91 mm[Hg] BP lucia blood pressure, systolic 148 mm[Hg] BP sys height E&M 72 [in_us] Bdy height pulse rate E&M 71 /min Heart rate temperature E&M 98.8 [degF] Body temp erature weight E&M 163 [lb_av] Weight Measure d blood pressure, diastolic 88 mm[Hg] BP lucia blood pressure, systolic 142 mm[Hg] BP sys height E&M 72 [in_us] Bdy height pulse rate E&M 80 /min Heart rate temperature E&M 98.4 [degF] Body temp erature weight E&M 148 [lb_av] Weight Measure d blood pressure, diastolic 83 mm[Hg] BP lucia blood pressure, systolic 129 mm[Hg] BP sys height E&M 72 [in_us] Bdy height pulse rate E&M 95 /min Heart rate temperature E&M 98.9 [degF] Body temp erature weight E&M 153.50 [lb_av] Weight Measure d blood pressure, diastolic 46 mm[Hg] BP lucia blood pressure, systolic 119 mm[Hg] BP sys height E&M 72 [in_us] Bdy height pulse rate E&M 88 /min Heart rate temperature E&M 98.2 [degF] Body temp erature weight E&M 158 [lb_av] Weight Measure d Diagnostic Results Date Name Value Unit Range Description Lab Report: Anaerobic and Aerobic Cultur e, Result, Anaerobic and Aerobic ... - Chemistry Culture, Anaerobic Final report Lab Report: CD4/CD8 Ratio Profile, Comp. Metabolic Panel (14), RNA, PCR( ... - Chemistry bilirubin, serum, direct 0.10 mg/dL 0.00-0.40 hepatitis B surface antigen Negative Negative Lab Report: Comp. Metabolic Panel (14), RNA, Real Time PCR (Graph), RPR, ... - Chemistry chloride, serum 104 mmol/L 96-106 Lab Report: CD4/CD8 Ratio Profile, Comp. Metabolic Panel (14), RNA, PCR( ... - Serology HIV genotype result GENRTI Lab Report: CD4/CD8 Ratio Profile, Comp. Metabolic Panel (14), RNA, PCR( ... - Microbiology hepatitis A antibody, total Positive Negative Lab Report: Comp. Metabolic Panel (14), RNA, Real Time PCR (Graph), RPR, ... - Chemistry urea nitrogen, blood 13 mg/dL 6-20 Lab Report: CD4/CD8 Ratio Profile, Comp. Metabolic Panel (14), RNA, PCR( ... - Serology HIV-1/HIV-2 Ab, serum Positive Negative Lab Report: Urinalysis, Routine, Prot+Cr eatU (Random), Ct, Ng, Trich vag ... - Urinalysis leukocyte esterase, urine, by dipstick Negative Negative Lab Report: QFT-TB Plus (Client Incubate d) - Hematology Quantiferon Gold TB blood test for tuberculosis Negative Negative screening Lab Report: CD4/CD8 Ratio Profile, Comp. Metabolic Panel (14), RNA, PCR( ... - Serology human leukocyte antigen B57 Negative Lab Report: CD4/CD8 Ratio Profile, Comp. Metabolic Panel (14), RNA, PCR( ... - Hematology mean corpuscular hemoglobin 34.2 G/DL % 31.5-35. 7 concentration, RBC erythrocyte (RBC) count 4.58 X10E6/UL 10*6/mm3 4.14-5.80 Lab Report: CD4/CD8 Ratio Profile, Comp. Metabolic Panel (14), RNA, PCR( ... - Serology hepatitis C antibody, serum <0.1 0.0-0.9 Lab Report: Urinalysis, Routine, Prot+Cr eatU (Random), Ct, Ng, Trich vag ... - Urinalysis urine color Yellow Yellow Lab Report: CD4/CD8 Ratio Profile, Comp. Metabolic Panel (14), RNA, PCR( ... - Chemistry absolute CD8 854 109-897 Lab Report: Urinalysis, Routine, Prot+Cr eatU (Random), Ct, Ng, Trich vag ... - Urinalysis bilirubin, urine Negative Negative Lab Report: CD4/CD8 Ratio Profile, Comp. Metabolic Panel (14), RNA, PCR( ... - Chemistry Absolute Neutrophils 4.2 X10E3/UL 10*3/uL 1.4-7.0 Lab Report: Comp. Metabolic Panel (14), RNA, Real Time PCR (Graph), RPR, ... - Chemistry urea nitrogen/creatinine ratio, serum 14 9-20 Lab Report: CD4/CD8 Ratio Profile, Comp. Metabolic Panel (14), RNA, PCR( ... - Hematology mean corpuscular volume, RBC 94 fL 79-97 monocytes as percent of blood leukocytes 10 % Not Estab. Lab Report: Comp. Metabolic Panel (14), RNA, Real Time PCR (Graph), RPR, ... - Chemistry albumin/globulin ratio, serum 1.5 1.2-2. 2 creatinine, serum 0.95 mg/dL 0.76-1.27 Lab Report: Urinalysis, Routine, Prot+Cr eatU (Random), Ct, Ng, Trich vag ... - Chemistry creatinine, random, urine 23.9 mg/dL Not Estab. Lab Report: Comp. Metabolic Panel (14), RNA, Real Time PCR (Graph), RPR, ... - Chemistry bilirubin, serum, total 0.4 mg/dL 0.0-1.2 Lab Report: CD4/CD8 Ratio Profile, Comp. Metabolic Panel (14), RNA, PCR( ... - Hematology Eosinophil Absolute Count 0.1 X10E3/UL 10*3/uL 0.0-0.4 Lab Report: Urinalysis, Routine, Prot+Cr eatU (Random), Ct, Ng, Trich vag ... - Lab chlamydia DNA probe Negative Negative Lab Report: Urinalysis, Routine, Prot+Cr eatU (Random), Ct, Ng, Trich vag ... - Urinalysis appearance, urine Clear Clear Lab Report: Comp. Metabolic Panel (14), RNA, Real Time PCR (Graph), RPR, ... - Chemistry aspartate aminotransferase (SGOT), serum 16 U/L 0-40 Lab Report: CD4/CD8 Ratio Profile, Comp. Metabolic Panel (14), RNA, PCR( ... - Hematology red blood cell distribution width 13.2 % 12 .3-15.4 Lab Report: Urinalysis, Routine, Prot+Cr eatU (Random), Ct, Ng, Trich vag ... - Urinalysis urinalysis, microscopic examination MICNIP pH, urine, semiquantitative 6.5 5.0-7.5 Lab Report: CD4/CD8 Ratio Profile, Comp. Metabolic Panel (14), RNA, PCR( ... - Hematology leukocyte count, blood 7.0 X10E3/UL 10*3/mm3 3.4-10.8 Lab Report: Comp. Metabolic Panel (14), RNA, Real Time PCR (Graph), RPR, ... - Chemistry potassium, serum 4.6 mmol/L 3.5-5.2 albumin, serum 4.2 g/dL 3.5-5.5 Lab Report: CD4/CD8 Ratio Profile, Comp. Metabolic Panel (14), RNA, PCR( ... - Chemistry immature granulocytes, percentage of total cells, bloo d 0 % Not Estab. Lab Report: Chlamydia/GC Amplification, Ct/GC RIC, Rectal, Ct/GC RIC, Ph ... - Microbiology Neisseria gonorrhoeae, throat culture Equivocal Negative Lab Report: CD4/CD8 Ratio Profile, Comp. Metabolic Panel (14), RNA, PCR( ... - Hematology lymphocyte count, blood, automated 2.0 X10E3/UL 10*3/mm3 0.7-3.1 Lab Report: Urinalysis, Routine, Prot+Cr eatU (Random), Ct, Ng, Trich vag ... - Microbiology Neisseria gonorrhoeae DNA probe Negative Nega tive Lab Report: CD4/CD8 Ratio Profile, Comp. Metabolic Panel (14), RNA, PCR( ... - Hematology hematocrit, blood 43.0 % 37.5-51.0 Lab Report: Comp. Metabolic Panel (14), RNA, Real Time PCR (Graph), RPR, ... - Chemistry sodium, serum 141 mmol/L 134-144 Lab Report: CD4/CD8 Ratio Profile, Comp. Metabolic Panel (14), RNA, PCR( ... - Serology toxoplasma gondii antibody, IgG <3.0 0.0- 7.1 Lab Report: CD4/CD8 Ratio Profile, Comp. Metabolic Panel (14), RNA, PCR( ... - Hematology neutrophils as percent of blood leukocytes 61 % Not Estab. basophils as percent of blood leukocytes 0 % Not Estab. Lab Report: Comp. Metabolic Panel (14), RNA, Real Time PCR (Graph), RPR, ... - Serology HIV-1RNA, serum, by PCR, quantitative 120 {Copies}/ mL Lab Report: Urinalysis, Routine, Prot+Cr eatU (Random), Ct, Ng, Trich vag ... - Chemistry specific gravity, body fluid <=1.005 1.005-1 .030 Lab Report: Urinalysis, Routine, Prot+Cr eatU (Random), Ct, Ng, Trich vag ... - Urinalysis protein, urine, semiquantitative (dipstick) Negative Negative/Trace Lab Report: CD4/CD8 Ratio Profile, Comp. Metabolic Panel (14), RNA, PCR( ... - Toxicology HIV-2 antibodies, western blot Negative Negat lucio Lab Report: Comp. Metabolic Panel (14), RNA, Real Time PCR (Graph), RPR, ... - Serology rapid plasma reagin antibody, serum 1:2 NonRea<1:1 Lab Report: CD4/CD8 Ratio Profile, Comp. Metabolic Panel (14), RNA, PCR( ... - Chemistry CD4/CD8 ratio 0.77 0.92-3.72 Lab Report: Comp. Metabolic Panel (14), RNA, Real Time PCR (Graph), RPR, ... - Chemistry carbon dioxide, venous blood 24 mmol/L 20-29 Lab Report: Urinalysis, Routine, Prot+Cr eatU (Random), Ct, Ng, Trich vag ... - Chemistry nitrate, urine Negative Negative Lab Report: CD4/CD8 Ratio Profile, Comp. Metabolic Panel (14), RNA, PCR( ... - Serology hepatitis B core antibody, total Positive Neg ative Lab Report: Comp. Metabolic Panel (14), RNA, Real Time PCR (Graph), RPR, ... - Chemistry calcium, serum 9.4 mg/dL 8.7-10.2 alanine aminotransferase (SGPT), serum 10 U/L 0-44 Lab Report: CD4/CD8 Ratio Profile, Comp. Metabolic Panel (14), RNA, PCR( ... - Hematology mean corpuscular hemoglobin, RBC 32.1 pg 26. 6-33.0 Lab Report: Comp. Metabolic Panel (14), RNA, Real Time PCR (Graph), RPR, ... - Chemistry protein, total, serum 7.0 g/dL 6.0-8.5 Lab Report: Comp. Metabolic Panel (14), RNA, Real Time PCR (Graph), RPR, ... - Lab Treponema pallidum antibodies, by particle Positive Negative agglutination Lab Report: Comp. Metabolic Panel (14), RNA, Real Time PCR (Graph), RPR, ... - Chemistry alkaline phosphatase, serum 52 U/L 39-117 Lab Report: CD4/CD8 Ratio Profile, Comp. Metabolic Panel (14), RNA, PCR( ... - Hematology T-helper cells (CD4) as percent of blood 32.7 % 30.8-58.5 lymphocytes hemoglobin, blood 14.7 g/dL 13.0-17.7 T-suppressor cells (CD8) as percent of blood 42.7 % 12.0-35.5 lymphocytes lymphocytes as percent of blood leukocytes 28 % Not Estab. Lab Report: Urinalysis, Routine, Prot+Cr eatU (Random), Ct, Ng, Trich vag ... - Urinalysis glucose, urine, semiquantitative Negative Neg ative Lab Report: Comp. Metabolic Panel (14), RNA, Real Time PCR (Graph), RPR, ... - Genetics/fertility eGFR if 125 mL/min/1.73m2 >59 Lab Report: CD4/CD8 Ratio Profile, Comp. Metabolic Panel (14), RNA, PCR( ... - Hematology basophil count, absolute 0.0 x10E3/uL 0.0-0.2 Lab Report: Chlamydia/GC Amplification, Ct/GC RIC, Rectal, Ct/GC RIC, Ph ... - Basic GC Rectum Positive Negative Lab Report: Comp. Metabolic Panel (14), RNA, Real Time PCR (Graph), RPR, ... - Chemistry globulin, serum 2.8 1.5-4.5 Estimated Glomerular Filtration Rate (calc) 108 mL/ min/1.73m2 >59 Lab Report: Urinalysis, Routine, Prot+Cr eatU (Random), Ct, Ng, Trich vag ... - Basic Occult Blood, urine Negative Negative Lab Report: CD4/CD8 Ratio Profile, Comp. Metabolic Panel (14), RNA, PCR( ... - Serology hepatitis B surface antibody Non Reactive Lab Report: CD4/CD8 Ratio Profile, Comp. Metabolic Panel (14), RNA, PCR( ... - Hematology eosinophils as percent of blood leukocytes 1 % Not Estab. Lab Report: Comp. Metabolic Panel (14), RNA, Real Time PCR (Graph), RPR, ... - Chemistry blood glucose, random 89 mg/dL 65-99 Lab Report: Comp. Metabolic Panel (14), RNA, Real Time PCR (Graph), RPR, ... - Serology Treponema pallidum Ab, serum Reactive Non Catherine ctive Lab Report: Urinalysis, Routine, Prot+Cr eatU (Random), Ct, Ng, Trich vag ... - Chemistry protein, total urine random <4.0 mg/dL mg/dL Not Esta b. Lab Report: Urinalysis, Routine, Prot+Cr eatU (Random), Ct, Ng, Trich vag ... - Urinalysis urobilinogen, urine, semiquantitative (dipstick) 0.2 0.2-1.0 Lab Report: Anaerobic and Aerobic Cultur e, Result, Anaerobic and Aerobic ... - Lab Aerobic culture Final report Lab Report: CD4/CD8 Ratio Profile, Comp. Metabolic Panel (14), RNA, PCR( ... - Hematology T-helper cells (CD4) count 654 /UL uL 359-1519 monocyte count, blood, automated 0.7 X10E3/UL 10*3/uL 0 .1-0.9 Lab Report: Urinalysis, Routine, Prot+Cr eatU (Random), Ct, Ng, Trich vag ... - Urinalysis ketones, urine, by test strip Negative Negati ve Lab Report: CD4/CD8 Ratio Profile, Comp. Metabolic Panel (14), RNA, PCR( ... - Hematology platelet count 407 X10E3/UL 10*3/mm3 150-379 Encounters Date Encounter Provider Code Facility Est Patient Detailed Claudia Thapa MD CPT-01214 [facility] Adult Medicine 09:27:39 CDT - Est Patient Exp Mara Wilson APRN CPT-53944 [facility] Ad ult Medicine 11:10:11 CDT Problem - Est Patient Nurse - Claudia Thapa MD CPT-79116 [facility] Adult Medicine 08:21:39 CDT Only Visit - 96208 Est Patient Exp Claudia Thapa MD CPT-60212 [facility] Ad ult Medicine 12:21:09 CDT Problem - 67213 Est Patient Exp Claudia Thapa MD CPT-00720 [facility] Ad ult Medicine 10:08:25 CDT Problem - 82732 Est Patient Nurse - Alisa Nair CHISELER HEAD CPT-77888 [facility] Adult Medicine 10:21:10 CDT Only Visit - 86580 Est Patient Claudia Hidalgo Elier GARCIA CPT-84925 [facility] Adult Medicine 11:18:42 TYRE RETREADER Comprehensive-81230 New Patient Exp Alisa Ochoaagueda MONTIELP CPT-80454 [facility] Adul t Medicine 12:23:00 TYRE RETREADER Problem - 74227 Procedures Code Procedure Name Date Entry Date Standard Desc ription CPT-20611 Addl Vx - Ix admin via ID IM or jet injects without 08:21:39 CDT counseling by physician CPT-17023 Pneumovax 23 Injection Injectable 25 MCG/0.5ML 08:21:39 CDT CPT-34723 First Vx - Ix admin via ID IM or jet injects without 08:21:39 CDT counseling by physician CPT-82857 Engerix-B Injection Suspension 20 MCG/ML 08:21:39 CDT CPT-J0561 Injection, penicillin g benzathine, 1.2 mu 09:13:21 CDT CPT-53877 IM Injection of Antibiotic 10:21:10 CDT CPT-J0561 Injection, penicillin g benzathine, 1.2 mu 10:21:10 CDT CPT-HE001 Health Education/Supportive 11:43:55 CDT Counseling CPT-83948 Fluzone 0.5 ml (Influenza Vacc 3 years plus IM) 11:18:42 [employer] RETREADER CPT-J0561 Injection, penicillin g benzathine, 1.2 mu 11:53:17 [employer]ER CPT-J0696 Injection, ceftriaxone sodium, per 250 mg 11:53:17 [facility] CPT-J8499 Azithromycin oral 11:53:16 [facility] CPT-HE001 Health Education/Supportive 16:02:44 [facility] Counseling CPT-24195 Handling of specimen for transfer 09:24:09 [facility] CPT-36662 Venipuncture 09:24:08 [facility] CPT-24934 IM Injection of Antibiotic 15:36:27 [facility] CPT-J0561 Injection, penicillin g benzathine, 1.2 mu 15:36:26 [facility] CPT-46573 Venipuncture 12:23:00 [facility] CPT-63183 Handling of specimen for transfer 12:22:59 TYRE RETREADER
--- NOTE | 2019-07-29 15:22 | RAD REPORT ---
EXAM DESCRIPTION: US - Extremity Nonvascular Limited - 07/29/2019 3:06 pm CLINICAL HISTORY: left dorsal foot swelling. Fluctuant region COMPARISON: No comparisons FINDINGS: Approximately 4-5 centimeter area of heterogeneous tissue is present between the skin and deeper bony structures in the anterior left foot. The mass is avascular. There is hyperemia in the so ft tissues surrounding this mass. Within the mass there is a amorphous areas of diminished echogenici ty that are seen to be mobile indicating plus or liquid content. IMPRESSION: Approximately 4-5 centimeter area of heterogeneous tissue in the left foot area of neal rn. The mass is avascular with hyperemia in the tissues surrounding the mass. Amorphous areas throughout the mass are suspected to be pus. Partially liquefied hematoma is possible . Correlation is needed with the clinical presentation.
[2019-07-29] MEDS ORDERED: LIDOCAINE 1% 20 ML MDV ONE (15:53)
--- NOTE | 2019-07-29 16:40 | ER ---
Nurse's Notes [facility] Name: Sonu Torrez III Age: 29 yrs Sex: Male : 1990 Arrival Date: 07/29/2019 Time: 14:40 Bed 18 Private MD: Diagnosis: Cutaneous abscess of left foot Presentation: 07/28 15:00 Chief complaint: Patient states: Swelling started on Friday into Friday. Denies pain rb1 and fever. Coronavirus screen: Proceed with normal triage. Patient denies a cough. Patient denies shortness of breath or difficulty breathing. Patient denies measured and/or subjective temperature greater than 100.4F prior to today's visit. Patient denies travel on a cruise ship or to a country the [facility] currently lists as an affected area. Patient denies contact with known and/or suspected case of COVID-19. Ebola Screen: Patient denies exposure to infectious person. Initial Sepsis Screen: Does the patient meet any 2 criteria? No. Patient's initial sepsis screen is negative. Does the patient have a suspected source of infection? No. Patient's initial sepsis screen is negative. Risk Assessment: Do you want to hurt yourself or someone else? Patient reports no desire to harm self or others. Onset of symptoms was July 24, 2019. 15:00 Method Of Arrival: Ambulatory rb1 15:00 Acuity: AFSANEH 3 rb1 Triage Assessment: 15:00 General: Appears in no apparent distress. comfortable, Behavior is calm, cooperative. rb1 General: Denies fever, feeling ill. Pain: Denies pain. Neuro: Level of Consciousness is awake, alert, obeys commands, Oriented to person, place, time, situation. Cardiovascular: Capillary refill < 3 seconds. Respiratory: Airway is patent Respiratory effort is even, unlabored, Respiratory pattern is regular, symmetrical, Denies cough, shortness of breath. GI: No signs and/or symptoms were reported involving the gastrointestinal system. : No signs and/or symptoms were reported regarding the genitourinary system. Derm: Skin is dry, Skin is normal, Skin temperature is warm. Musculoskeletal: Swelling present in left foot. Historical: - Allergies: 15:00 No Known Allergies; rb1 - Home Meds: 15:00 None [Active]; rb1 - PMHx: 15:00 None; rb1 - PSHx: 15:00 None; rb1 - Immunization history:: Adult Immunizations up to date. - Social history:: Smoking status: Patient reports the use of cigarette tobacco products, denies chronic smoking, but will smoke occasionally. Screenin:00 Abuse screen: Denies threats or abuse. Nutritional screening: No deficits noted. rb1 Tuberculosis screening: No symptoms or risk factors identified. Fall Risk None identified. Assessment: 15:00 General: See triage assessment. rb1 16:00 Reassessment: Patient appears in no apparent distress at this time. Patient and/or rb1 family updated on plan of care and expected duration. Pain level reassessed. Patient is alert, oriented x 3, equal unlabored respirations, skin warm/dry/pink. 17:00 Reassessment: Patient appears in no apparent distress at this time. Pt. is talking on rb1 his telephone. Vital Signs: 15:00 BP 119 / 86; Pulse 76; Resp 17; Temp 98.2(TE); Pulse Ox 98% on R/A; Weight 70.31 kg rb1 (R); Height 6 ft. 0 in. (182.88 cm) (R); Pain 0/10; 15:40 BP 122 / 79; Pulse 65; Resp 16; Pulse Ox 100% on R/A; rb1 16:40 BP 131 / 88; Pulse 77; Resp 17; Pulse Ox 100% on R/A; rb1 15:00 Body Mass Index 21.02 (70.31 kg, 182.88 cm) rb1 ED Course: 14:40 Patient arrived in ED. ag5 14:42 Dejuan Epps PA is PHCP. jr8 14:42 Jovanni Ford MD is Attending Physician. jr8 14:55 Jaelyn Mosley, RN is Primary Nurse. rb1 15:00 Arm band placed on right wrist. rb1 15:00 Patient has correct armband on for positive identification. Bed in low position. Call rb1 light in reach. Side rails up X 1. Pulse ox on. NIBP on. 15:06 US Extrmty Nonvasular Limited In Process Unspecified. EDMS 15:18 Triage completed. rb1 16:38 Mingo Henry MD is Referral Physician. jr8 17:24 No provider procedures requiring assistance completed. Patient did not have IV access rb1 during this emergency room visit. 17:56 Primary Nurse role handed off by Jaelyn Mosley, RN rb1 17:56 Jaelyn Mosley, RN is Primary Nurse. rb1 Administered Medications: 16:30 Drug: Lidocaine (1 %) 1 vials Volume: 20 ml; Route: Infiltration; rb1 Outcome: 16:39 Discharge ordered by . hyacinth 17:24 Patient left the ED. rb1 17:24 Discharged to home via wheelchair, with crutches. rb1 17:24 Condition: stable 17:24 Discharge instructions given to patient, Instructed on discharge instructions, follow up and referral plans. medication usage, Demonstrated understanding of instructions, follow-up care, medications, Prescriptions given X 2. Signatures: Dispatcher [employer] EDMS Dejuan Epps PA PA jr8 Jaelyn Mosley, RN RN rb1 Maricruz Killian ag5 Corrections: (The following items were deleted from the chart) 17:59 17:58 Patient left the ED. rb1 rb1
--- NOTE | 2019-07-29 16:41 | EDPHYS ---
Physician Documentation [facility] Name: Sonu Torrez III Age: 29 yrs Sex: Male : 1990 Arrival Date: 07/29/2019 Time: 14:40 Bed 18 Private MD: ED Physician Jovanni Ford HPI: 07/28 15:12 This 29 yrs old Black Male presents to ER via Unassigned with complaints of Foot jr8 Swelling. 15:12 The patient presents with pain, swelling, tenderness. The complaints affect the left jr8 foot. Onset: The symptoms/episode began/occurred gradually, 2 day(s) ago. Modifying factors: The symptoms are alleviated by nothing, the symptoms are aggravated by movement, wearing shoes. Associated signs and symptoms: The patient has no apparent associated signs or symptoms. Severity of symptoms: At their worst the symptoms were mild, in the emergency department the symptoms are unchanged. The patient has not experienced similar symptoms in the past. The patient has not recently seen a physician. Historical: - Allergies: 15:00 No Known Allergies; rb1 - Home Meds: 15:00 None [Active]; rb1 - PMHx: 15:00 None; rb1 - PSHx: 15:00 None; rb1 - Immunization history:: Adult Immunizations up to date. - Social history:: Smoking status: Patient reports the use of cigarette tobacco products, denies chronic smoking, but will smoke occasionally. ROS: 15:24 Constitutional: Negative for fever, chills, and weight loss, Eyes: Negative for injury, jr8 pain, redness, and discharge, ENT: Negative for injury, pain, and discharge, Neck: Negative for injury, pain, and swelling, Respiratory: Negative for shortness of breath, cough, wheezing, and pleuritic chest pain, Abdomen/GI: Negative for abdominal pain, nausea, vomiting, diarrhea, and constipation, Back: Negative for injury and pain, MS/Extremity: Negative for injury and deformity, Neuro: Negative for headache, weakness, numbness, tingling, and seizure. 15:24 Skin: Positive for swelling, of the dorsal left foot. Exam: 15:24 Constitutional: This is a well developed, well nourished patient who is awake, alert, jr8 and in no acute distress. Cardiovascular: Regular rate and rhythm with a normal S1 and S2. No gallops, murmurs, or rubs. Normal PMI, no JVD. No pulse deficits. Respiratory: Lungs have equal breath sounds bilaterally, clear to auscultation and percussion. No rales, rhonchi or wheezes noted. No increased work of breathing, no retractions or nasal flaring. MS/ Extremity: Pulses equal, no cyanosis. Neurovascular intact. Full, normal range of motion. Neuro: Awake and alert, GCS 15, oriented to person, place, time, and situation. Cranial nerves II-XII grossly intact. Motor strength 5/5 in all extremities. Sensory grossly intact. Cerebellar exam normal. Normal gait. 15:24 Skin: area of redness and fluctuance noted to dorsal left foot over the metacarpal region. No abrasive blevins or puncture wounds noted . Vital Signs: 15:00 BP 119 / 86; Pulse 76; Resp 17; Temp 98.2(TE); Pulse Ox 98% on R/A; Weight 70.31 kg rb1 (R); Height 6 ft. 0 in. (182.88 cm) (R); Pain 0/10; 15:40 BP 122 / 79; Pulse 65; Resp 16; Pulse Ox 100% on R/A; rb1 16:40 BP 131 / 88; Pulse 77; Resp 17; Pulse Ox 100% on R/A; rb1 15:00 Body Mass Index 21.02 (70.31 kg, 182.88 cm) rb1 Procedures: 16:36 I \T\ D: Incision and drainage was performed for an abscess of the left dorsal foot jr8 Prepped with Betadine, Anesthetized with 3 ml's 1% Lidocaine. Incised with #11 blade. Drained moderate amount purulent fluid. serosanguinous fluid. bloody fluid. Loculations removed. Abscess cavity explored. Packed with sterile gauze, Dressing: sterile 4x4 gauze, the patient tolerated the procedure well. MDM: 14:42 Patient medically screened. jr8 16:36 Data reviewed: vital signs, nurses notes, radiologic studies, ultrasound. Data jr8 interpreted: Pulse oximetry: on room air is 98 %. Interpretation: normal. Counseling: I had a detailed discussion with the patient and/or guardian regarding: the historical points, exam findings, and any diagnostic results supporting the discharge/admit diagnosis, lab results, radiology results, the need for outpatient follow up, a plastic surgeon, to return to the emergency department if symptoms worsen or persist or if there are any questions or concerns that arise at home. ED course: Discussed with patient that he either needs to see Plastics or us in 48 hours for packing removal. Still needs to keep plastics appointment even if he cannot get in to see them within 48 hours. Patient good with this. Knows to come back if worse or with fever or spreading of redness . 07/28 14:48 Order name: US Extrmty Nonvasular Limited; Complete Time: 15:26 [facility] 07/28 15:46 Order name: I\T\D Setup; Complete Time: 16:05 [facility] 07/28 17:57 Order name: Crutches; Complete Time: 17:57 rb1 Administered Medications: 16:30 Drug: Lidocaine (1 %) 1 vials Volume: 20 ml; Route: Infiltration; rb1 Disposition: 18:37 Co-signature as Attending Physician, Jovanni Ford MD I agree with the assessment and kdr plan of care. Disposition: 07/29/19 16:39 Discharged to Home. Impression: Cutaneous abscess of left foot. - Condition is Stable. - Discharge Instructions: Skin Abscess, Incision and Drainage. - Prescriptions for Ibuprofen 800 mg Oral Tablet - take 1 tablet by ORAL route every 12 hours As needed take with food; 20 tablet. Bactrim DS 800- 160 mg Oral Tablet - take 1 tablet by ORAL route every 12 hours for 10 days; 20 tablet. - Medication Reconciliation Form, Thank You Letter, Antibiotic Education, Prescription Opioid Use form. - Follow up: Mingo Henry MD; When: 48 Hours; Reason: Wound Recheck, Recheck today's complaints, Continuance of care, Re-evaluation by your physician. - Problem is new. - Symptoms have improved. Signatures: Dispatcher [employer] EDMS Jovanni Ford MD MD kdr Dejuan Epps PA PA jr8 Jaelyn Mosley RN RN rb1 Corrections: (The following items were deleted from the chart) 17:24 16:39 07/29/2019 16:39 Discharged to Home. Impression: Cutaneous abscess of left foot. rb1 Condition is Stable. Forms are Medication Reconciliation Form, Thank You Letter, Antibiotic Education, Prescription Opioid Use. Follow up: Mingo Henry; When: 48 Hours; Reason: Wound Recheck, Recheck today's complaints, Continuance of care, Re-evaluation by your physician. Problem is new. Symptoms have improved. jr8 17:58 17:24 07/29/2019 16:39 Discharged to Home. Impression: Cutaneous abscess of left foot. rb1 Condition is Stable. Discharge Instructions: Skin Abscess, Incision and Drainage. Prescriptions for Ibuprofen 800 mg Oral Tablet - take 1 tablet by ORAL route every 12 hours As needed take with food; 20 tablet, Bactrim DS 800-160 mg Oral Tablet - take 1 tablet by ORAL route every 12 hours for 10 days; 20 tablet. and Forms are Medication Reconciliation Form, Thank You Letter, Antibiotic Education, Prescription Opioid Use. Follow up: Mingo Henry; When: 48 Hours; Reason: Wound Recheck, Recheck today's complaints, Continuance of care, Re-evaluation by your physician. Problem is new. Symptoms have improved. rb1
[2019-07-29 17:41] VITALS: TEMP 98.2
[2019-07-29 18:05] VITALS: O2SAT 100
[2019-07-29 18:06] VITALS: BP 131/88
== END 2019-07-29 17:58 | disposition home or self-care (01) ==
LOC: ER 14:38
PROC: 0J9R0ZZ Drainage of Left Foot Subcutaneous Tissue and Fascia, Open Approach (ICD-10-PCS; principal; 2019-07-29)
DX: L02.612 Cutaneous abscess of left foot (principal); Z72.0 Tobacco use
CPT/HCPCS: 76882; 99284